=== PATIENT | male | born 1945 | race African-American/Black ===

== ENCOUNTER 2018-05-19 21:08 | Emergency (ER) | payer OTHER ==
--- NOTE | 2018-05-19 22:05 | RAD ---
PORTABLE AP CHEST X-RAY 05/19/18 HISTORY: Chest pain. COMPARISON: None available. FINDINGS: Postsurgical changes related to median sternotomy are noted. Cardiac silhouette is magnified by proje ction but does appear enlarged. Pulmonary vasculature is within normal limits. Lungs are clear. [place] us structures are intact. IMPRESSION: 1. No acute cardiopulmonary process. 2. Mild cardiomegaly. POS: [facility]
[2018-05-19 22:28] LABS: #Eosinphils 0.1 thou/uL (0.0-0.7); #Lymphocytes 1.8 thou/uL (1.20-3.40); #Monocytes 0.6 thou/uL (0.11-0.59); %Basophils 0.4 % (0.0-1.0); %Lymphocytes 26.9 % (21.0-51.0); %Monocytes 9.3 % (0.0-10.0); %Neutrophils 61.4 % (42.0-75.0); Hemoglobin 14.1 g/dL (14.0-18.0); Mean Corpuscular Hemoglobin 31.2 pg (27.0-31.0); Mean Corpuscular Volume 91.9 fL (78.0-98.0); Mean Platelet Volume 6.6 fL (7.4-10.4); Platelet Count 307 thou/uL (130-400); RBC Distribution Width 13.4 % (11.5-14.5); Red Blood Cell (RBC) Count 4.51 mill/uL (4.70-6.10); White Blood Cell (WBC) Count 6.5 thou/uL (4.8-10.8)
[2018-05-19 22:48] LABS: ALT (SGPT) 25 U/L (8-55); AST (SGOT) 24 U/L (5-34); Albumin 3.8 g/dL (3.4-4.8); Alkaline Phosphatase 108 U/L (40-150); Anion Gap 14 mmol/L (10-20); BUN (Urea Nitrogen) 21 mg/dL (8.4-25.7); Bilirubin, Total 0.3 mg/dL (0.2-1.2); CK (CPK) 501 U/L (30-200); Calc. Creatinine Clearance 0 mL/min (70-130); Calcium 8.5 mg/dL (7.8-10.44); Carbon Dioxide 22 mmol/L (23-31); Chloride 104 mmol/L (98-107); Estimated GFR-MDRD 59; Globulin 3.3 g/dL (2.4-3.5); Glucose 322 mg/dL (83-110); Potassium 4.8 mmol/L (3.5-5.1); Protein, Total 7.1 g/dL (5.8-8.1); Sodium 135 mmol/L (136-145)
[2018-05-19 22:50] LABS: CKMB 3.5 ng/mL (0-6.6); Troponin I 0.028 ng/mL (< 0.028)
[2018-05-19] MEDS ORDERED: Enoxaparin Sodium 80 MG/0.8 ML SYRINGE ONE (23:46)
[2018-05-19] MEDS ORDERED: Enoxaparin Sodium 30 MG/0.3 ML SYRINGE ONE (23:46)
[2018-05-20] MEDS ORDERED: Nitroglycerin 2% Ointment 1 INCH/1 GM Packet ONE (01:03)
[2018-05-20] MEDS ORDERED: hydrALAZINE 20 MG/ML VIAL ONE (01:17)
--- NOTE | 2018-05-22 19:39 | EKG ---
Test Reason : Blood Pressure : / mmHG Vent. Rate : 066 BPM Atrial Rate : 066 BPM P-R Int : 176 ms QRS Dur : 090 ms QT Int : 408 ms P-R-T Axes : 057 -30 126 degrees QTc Int : 427 ms Normal sinus rhythm Left axis deviation Septal infarct , age undetermined Abnormal ECG Confirmed by KIMI WATSON M.D. ([id number]), international editorial producer JE DOMINIQUE ([id number]) on 05/22/2018 7:38:27 PM Referred By: Confirmed By:KIMI WATSON M.D.
== END 2018-05-20 02:40 | disposition short-term general hospital (02) ==
LOC: EDBD 21:08 → ERS 21:08
DX: I20.0 Unstable angina (principal); I12.9 Hypertensive chronic kidney disease with stage 1 through stage 4 chronic kidney disease, or unspecified chronic kidney disease; E11.22 Type 2 diabetes mellitus with diabetic chronic kidney disease; N18.9 Chronic kidney disease, unspecified; D63.1 Anemia in chronic kidney disease; E11.40 Type 2 diabetes mellitus with diabetic neuropathy, unspecified; Z86.19 Personal history of other infectious and parasitic diseases; Z79.84 Long term (current) use of oral hypoglycemic drugs; Z79.899 Other long term (current) drug therapy
CPT/HCPCS: 36415; 71045; 80053; 82550; 82553; 84484; 85025; 93005; 96372; 96374; J0360; J1650